=== PATIENT | male | born 1970 | race Caucasian/White ===

== ENCOUNTER 2018-04-26 06:23 | Emergency (ER) | payer SELFPAY ==
[2018-04-26] MEDS ORDERED: ASPIRIN 81 MG CHEWABLE TABLET ONE (06:54)
[2018-04-26] MEDS ORDERED: LORazepam 2 MG/ML VIAL ONE (06:54)
[2018-04-26 07:10] LABS: Absolute Lymphocytes (CBC) 1.4 K/uL (0.7-4.9); Absolute Monocytes 0.9 K/uL (0.1-1.3); Absolute Neutrophil 10.6 K/uL (1.8-8.0); Basophils % 1.2 % (0-1.3); Hematocrit 49.6 % (39.6-49.0); Lymphocytes % 10.4 % (15.3-44.8); MCV 93.3 fL (80-100); MPV 7.7 fL (7.6-11.3); Monocytes % 6.6 % (3.3-12.3); RBC Red Blood Cell Count 5.32 M/uL (4.33-5.43)
[2018-04-26 07:12] LABS: Protime INR 0.97
[2018-04-26 07:25] LABS: ALT/SGPT 33 U/L (12-78); AST/SGOT 15 U/L (15-37); Alkaline Phosphatase 64 U/L (45-117); BUN Blood Urea Nitrogen 15 mg/dL (7-18); Bicarbonate 24 mmol/L (21-32); Bilirubin Direct 0.1 mg/dL (0-0.2); Bilirubin Total 0.4 mg/dL (0.2-1.0); CKMB Creatine Kinase MB 1.4 ng/mL (0.3-3.6); Creatine Phosphokinase 85 U/L (39-308); Glucose Level 114 mg/dL (74-106); Magnesium 2.4 mg/dL (1.8-2.4); NT PRO-BNP 19 pg/mL (<125); Protein, Total 7.6 g/dL (6.4-8.2); Sodium Level 138 mmol/L (136-145); Troponin (Emerg Dept Use Only) < 0.02 ng/mL (0.0-0.045)
[2018-04-26] MEDS ORDERED: DIPHENHYDRAMINE 25 MG TAB/CAP ONE (09:52)
[2018-04-26] MEDS ORDERED: SUCRALFATE 1 GM TABLET ONE (10:26)
--- NOTE | 2018-04-26 12:05 | EDPHYS ---
Physician Documentation [facility] Name: Franklin Medellin Age: 47 yrs Sex: Male : 1970 Arrival Date: 04/26/2018 Time: 06:26 Bed External Waiting Private MD: ED Physician Berlin Newman HPI: 04/26 06:48 This 47 yrs old Male presents to ER via EMS with complaints of Chest Pain. snw 06:48 The patient or guardian reports chest pain that is located primarily in the substernal snw area, epigastric area. Onset: suddenly, 3 hour(s) ago. The pain does not radiate. Associated signs and symptoms: The patient has no apparent associated signs or symptoms. The chest pain is described as sharp. Duration: The patient or guardian reports multiple episodes. Severity of pain: At its worst the pain was incapacitating. EMS care prior to arrival includes: saline lock. It is unknown whether or not the patient has had similar symptoms in the past. It is unknown whether or not the patient has recently seen a physician. last medicated for HTN, schizophrenia a month ago while in halfway. Historical: - Allergies: 06:34 No Known Allergies; jb4 - Home Meds: 06:34 None [Active]; jb4 - PMHx: 06:34 GERD; Hypertension; Anxiety; Schizophrenia; Bipolar disorder; Depression; jb4 - Immunization history:: Adult Immunizations up to date. - Social history:: Smoking status: Patient uses tobacco products, smokes one pack cigarettes per day. Patient uses street drugs, marijuana. - Ebola Screening: : No symptoms or risks identified at this time. ROS: 06:47 Eyes: Negative for injury, pain, redness, and discharge, ENT: Negative for injury, snw pain, and discharge, Neck: Negative for injury, pain, and swelling, Respiratory: Negative for shortness of breath, cough, wheezing, and pleuritic chest pain, Abdomen/GI: Negative for abdominal pain, nausea, vomiting, diarrhea, and constipation, Back: Negative for injury and pain, : Negative for injury, bleeding, discharge, and swelling, MS/Extremity: Negative for injury and deformity, Skin: Negative for injury, rash, and discoloration, Neuro: Negative for headache, weakness, numbness, tingling, and seizure. 06:47 Constitutional: Positive for body aches. 06:47 Cardiovascular: Positive for chest pain, with cough, with movement, of the xyphoid area. Exam: 06:43 Constitutional: This is a well developed, well nourished patient who is awake, alert, snw and in no acute distress. Head/Face: Normocephalic, atraumatic. Eyes: Pupils equal round and reactive to light, extra-ocular motions intact. Lids and lashes normal. Conjunctiva and sclera are non-icteric and not injected. Cornea within normal limits. Periorbital areas with no swelling, redness, or edema. ENT: Nares patent. No nasal discharge, no septal abnormalities noted. Tympanic membranes are normal and external auditory canals are clear. Oropharynx with no redness, swelling, or masses, exudates, or evidence of obstruction, uvula midline. Mucous membranes moist. Neck: Trachea midline, no thyromegaly or masses palpated, and no cervical lymphadenopathy. Supple, full range of motion without nuchal rigidity, or vertebral point tenderness. No Meningismus. Respiratory: Lungs have equal breath sounds bilaterally, clear to auscultation and percussion. No rales, rhonchi or wheezes noted. No increased work of breathing, no retractions or nasal flaring. Abdomen/GI: Soft, non-tender, with normal bowel sounds. No distension or tympany. No guarding or rebound. No evidence of tenderness throughout. Back: No spinal tenderness. No costovertebral tenderness. Full range of motion. Skin: Warm, dry with normal turgor. Normal color with no rashes, no lesions, and no evidence of cellulitis. MS/ Extremity: Pulses equal, no cyanosis. Neurovascular intact. Full, normal range of motion. Neuro: Awake and alert, GCS 15, oriented to person, place, time, and situation. Cranial nerves II-XII grossly intact. Motor strength 5/5 in all extremities. Sensory grossly intact. Cerebellar exam normal. Normal gait. 06:43 Chest/axilla: Inspection: normal, Palpation: is normal. 06:43 Cardiovascular: Rate: bradycardic, Rhythm: regular, Pulses: no pulse deficits are appreciated, Heart sounds: normal, Edema: is not appreciated. Vital Signs: 06:34 BP 164 / 111; Pulse 54; Resp 20; Temp 97.5(O); Pulse Ox 100% on R/A; Weight 81.65 kg; jb4 Height 5 ft. 11 in. (180.34 cm); Pain 10/10; 07:30 BP 151 / 110; Pulse 48; Resp 17; Pulse Ox 99% on R/A; sg 08:22 BP 148 / 102; Pulse 53; Resp 17; Pulse Ox 100% on R/A; sg 06:34 Body Mass Index 25.10 (81.65 kg, 180.34 cm) jb4 MDM: 06:35 Patient medically screened. snw 11:15 ECG:. The patient was given aspirin in the Emergency Department. Data reviewed: vital snw signs, nurses notes. Data interpreted: Pulse oximetry: on room air is 100 %. Interpretation: normal. Counseling: I had a detailed discussion with the patient and/or guardian regarding: the historical points, exam findings, and any diagnostic results supporting the discharge/admit diagnosis, the presence of at least one elevated blood pressure reading (>120/80) during this emergency department visit, lab results, the need for outpatient follow up, for definitive care, to return to the emergency department if symptoms worsen or persist or if there are any questions or concerns that arise at home, smoking cessation. Special discussion: Based on the patient's history, exam, and Dx evaluation, there is no indication for emergent intervention or inpatient Tx. It is understood by the patient/guardian that if the Sx's persist or worsen they need to return immediately for re-evaluation. I have referred the patient to see his PCP for further evaluation of high blood pressure. Based on the history and exam findings, there is no indication for further emergent testing or inpatient evaluation. I discussed with the patient/guardian the need to see the primary care provider for further evaluation of the symptoms. 04/26 06:34 Order name: Basic Metabolic Panel; Complete Time: 07:36 snw 04/26 06:34 Order name: CBC with Diff; Complete Time: 07:36 snw 04/26 06:34 Order name: Ckmb; Complete Time: 07:36 snw 04/26 06:34 Order name: CPK; Complete Time: 07:36 snw 04/26 06:34 Order name: LFT's; Complete Time: 07:36 snw 04/26 06:34 Order name: Magnesium; Complete Time: 07:36 snw 04/26 06:34 Order name: NT PRO-BNP; Complete Time: 07:36 snw 04/26 06:34 Order name: PT-INR; Complete Time: 07:36 w 04/26 06:34 Order name: Ptt, Activated; Complete Time: 07:36 snw 04/26 06:34 Order name: Troponin (emerg Dept Use Only); Complete Time: 07:36 snw 04/26 06:34 Order name: XRAY Chest (1 view) w 04/26 06:34 Order name: EKG; Complete Time: 06:35 snw 04/26 06:34 Order name: Cardiac monitoring; Complete Time: 06:41 snw 04/26 06:34 Order name: EKG - Nurse/Tech; Complete Time: 06:55 snw 04/26 06:34 Order name: IV Saline Lock; Complete Time: 06:41 snw 04/26 06:34 Order name: Labs collected and sent; Complete Time: 06:41 snw 04/26 06:34 Order name: O2 Per Protocol; Complete Time: 06:41 snw 04/26 06:34 Order name: O2 Sat Monitoring; Complete Time: 06:42 snw 04/26 08:17 Order name: Recheck VS; Complete Time: 08:22 snw EC:15 Clinical impression: NSR w/ Non-specific ST/T Changes. Interpreted by me. snw Administered Medications: 06:53 Drug: Aspirin Chewable Tablet 324 mg Route: PO; ea 07:30 Follow up: Response: No adverse reaction sg 06:54 Not Given (Physician Discretion): Ativan 1 mg PO once ea 06:55 Drug: Ativan 1 mg Route: IVP; Site: left antecubital; ea 08:00 Follow up: Response: No adverse reaction; No change in condition sg Disposition: 04/26/18 11:14 Discharged to Home. Impression: Chest pain, unspecified. - Condition is Stable. - Discharge Instructions: Nonspecific Chest Pain, Hypertension. - Medication Reconciliation Form, Thank You Letter, Antibiotic Education, Prescription Opioid Use form. - Follow up: Private Physician; When: Today; Reason: Recheck today's complaints, Continuance of care, Re-evaluation by your physician. Addendum: 04/28/2018 10:09 Co-signature as Attending Physician, Berlin Newman MD. g s Signatures: Dispatcher [employer] EDMS Karissa Miller, AEROSOL SUPERVISOR-C AEROSOL SUPERVISOR-Csnw Dulce Mann, RN RN Franklin Mo RN RN jb4 Agnieszka Archuleta RN Berlin Vazquez ea, MD MD Tripp Keller RN sg Corrections: (The following items were deleted from the chart) 04/26 11:21 11:14 04/26/2018 11:14 Discharged to Home. Impression: Chest pain, unspecified. iw Condition is Stable. Forms are Medication Reconciliation Form, Thank You Letter, Antibiotic Education, Prescription Opioid Use. Follow up: Private Physician; When: Today; Reason: Recheck today's complaints, Continuance of care, Re-evaluation by your physician. snw
--- NOTE | 2018-04-26 12:05 | ER ---
Nurse's Notes [facility] Name: Franklin Medellin Age: 47 yrs Sex: Male : 1970 Arrival Date: 04/26/2018 Time: 06:26 Bed External Waiting Private MD: Diagnosis: Chest pain, unspecified Presentation: 04/26 06:27 Presenting complaint: EMS states: Pt woke up 3 hours ago with epigastric/chest pain. jb4 EMS states pt was hyperventilating at home. Pt reports nausea. Transition of care: patient was not received from another setting of care. Onset of symptoms was April 26, 2018 at 03:30. Risk Assessment: Do you want to hurt yourself or someone else? Patient reports no desire to harm self or others. Initial Sepsis Screen: Does the patient meet any 2 criteria? No. Patient's initial sepsis screen is negative. Does the patient have a suspected source of infection? No. Patient's initial sepsis screen is negative. Care prior to arrival: None. 06:27 Method Of Arrival: EMS: [facility] 06:27 Acuity: AUBREY 3 jb4 Triage Assessment: 06:34 General: Appears in no apparent distress. uncomfortable, Behavior is cooperative, jb4 appropriate for age, anxious. Pain: Complains of pain in xyphoid area and mid-sternal area. Neuro: Level of Consciousness is awake, alert, obeys commands, Oriented to person, place, time, situation. Cardiovascular: Patient's skin is warm and dry. Respiratory: Airway is patent Respiratory effort is even, unlabored, Respiratory pattern is regular, symmetrical. GI: Reports nausea. Derm: Skin is pink, warm \\T\\ dry. Historical: - Allergies: 06:34 No Known Allergies; jb4 - Home Meds: 06:34 None [Active]; jb4 - PMHx: 06:34 GERD; Hypertension; Anxiety; Schizophrenia; Bipolar disorder; Depression; jb4 - Immunization history:: Adult Immunizations up to date. - Social history:: Smoking status: Patient uses tobacco products, smokes one pack cigarettes per day. Patient uses street drugs, marijuana. - Ebola Screening: : No symptoms or risks identified at this time. Screenin:40 Abuse screen: Denies threats or abuse. Nutritional screening: No deficits noted. jb4 Tuberculosis screening: No symptoms or risk factors identified. Fall Risk None identified. Assessment: 06:41 Pain: Pain does not radiate. Pain began 3 hours ago. jb4 08:08 Reassessment: Patient appears in no apparent distress at this time. Patient and/or sg family updated on plan of care and expected duration. Pain level reassessed. Patient is alert, oriented x 3, equal unlabored respirations, skin warm/dry/pink. pt reports " that shot of medicine they gave me earlier helped a little bit but not a lot." pt encouraged to provide a urine specimen, pt reports not having to urinate at this time. Vital Signs: 06:34 BP 164 / 111; Pulse 54; Resp 20; Temp 97.5(O); Pulse Ox 100% on R/A; Weight 81.65 kg; jb4 Height 5 ft. 11 in. (180.34 cm); Pain 10/10; 07:30 BP 151 / 110; Pulse 48; Resp 17; Pulse Ox 99% on R/A; sg 08:22 BP 148 / 102; Pulse 53; Resp 17; Pulse Ox 100% on R/A; sg 06:34 Body Mass Index 25.10 (81.65 kg, 180.34 cm) jb4 ED Course: 06:26 Patient arrived in ED. jb4 06:31 Triage completed. jb4 06:34 Karissa Miller FNP-C [facility] snw 06:34 Berlin Newman MD is Attending Physician. snw 06:34 Arm band placed on right wrist. jb4 06:40 Patient has correct armband on for positive identification. Pulse ox on. NIBP on. jb4 06:40 Maintain EMS IV. Dressing intact. Good blood return noted. Site clean \\T\\ dry. Gauge \\T\\ ronda 4 site: 20 g L AC. Patient maintains SpO2 saturation greater than 95% on room air. 06:51 X-ray completed. Portable x-ray completed in exam room. Patient tolerated procedure kp1 well. 06:52 XRAY Chest (1 view) In Process Unspecified. EDMS 07:09 Tripp Keller, RN is Primary Nurse. sg 11:00 IV discontinued, intact, bleeding controlled, No redness/swelling at site. Pressure iw dressing applied. 11:20 No provider procedures requiring assistance completed. iw Administered Medications: 06:53 Drug: Aspirin Chewable Tablet 324 mg Route: PO; ea 07:30 Follow up: Response: No adverse reaction sg 06:54 Not Given (Physician Discretion): Ativan 1 mg PO once ea 06:55 Drug: Ativan 1 mg Route: IVP; Site: left antecubital; ea 08:00 Follow up: Response: No adverse reaction; No change in condition sg Outcome: 11:14 Discharge ordered by MD. [place] 11:20 Discharged to home ambulatory, with family. iw 11:20 Condition: good 11:20 Discharge instructions given to patient, Instructed on discharge instructions, follow up and referral plans. Demonstrated understanding of instructions. 11:21 Patient left the ED. iw Signatures: Dispatcher [employer] EDMS Tripp Keller RN RN sg Karissa Miller, TOLL GATE TENDER-C TOLL GATE TENDER-Csnw Dulce Mann, RN SENIA Franklin Jaramillo RN SENIA jb Yoana Mai kp1 Agnieszka Archuleta RN RN ea
--- NOTE | 2018-04-26 14:41 | RAD REPORT ---
EXAM DESCRIPTION: RAD - Chest Single View - 04/26/2018 6:55 am CLINICAL HISTORY: CHEST PAIN<Reason For Exam>CHEST PAIN COMPARISON: No comparisons<Comparisons> TECHNIQUE: AP portable chest image was obtained 0641 hours . FINDINGS: No focal mass or consolidation. Lung markings are mildly prominent believed to be in part due to shallow inspiration. Significant interstitial edema or infiltrate doubtful. Heart and vasculat ure are normal. No measurable pleural effusion and no pneumothorax. No gross bony abnormality seen. N o acute aortic findings suspected. IMPRESSION: No focal infiltrate, mass or significant acute finding.
--- NOTE | 2018-04-27 08:38 | EKG ---
Test Date: 2018-04-26 Test Time: 06:53:34 Brake Adjuster: NISHANT MEASUREMENT RESULTS: Intervals: Rate: 58 LA: 208 QRSD: 88 QT: 420 QTc: 412 [place]: P: 121 LA: 208 QRS: 16 T: 82 INTERPRETIVE STATEMENTS: Unusual P axis, possible ectopic atrial bradycardia Nonspecific T wave abnormality Abnormal ECG No previous ECG available for comparison Electronically Signed On 04-27-18 08:36:39 CDT by Cezar Franklin
== END 2018-04-26 11:21 | disposition home or self-care (01) ==
LOC: ER 06:23
DX: R07.9 Chest pain, unspecified (principal); I10 Essential (primary) hypertension; F20.9 Schizophrenia, unspecified; F31.9 Bipolar disorder, unspecified; F17.210 Nicotine dependence, cigarettes, uncomplicated
CPT/HCPCS: 36415; 71045; 80048; 80076; 82550; 82553; 83735; 83880; 84484; 85025; 85610; 85730; 93005; 96374; 99284

== ENCOUNTER 2019-02-16 08:01 | Emergency (ER) | payer SELFPAY ==
[2019-02-16] MEDS ORDERED: DIPHENHYDRAMINE 25 MG TAB/CAP ONE (08:36)
[2019-02-16] MEDS ORDERED: FAMOTIDINE 20 MG TAB ONE (08:36)
[2019-02-16] MEDS ORDERED: predniSONE 20 MG TAB ONE (08:36)
--- NOTE | 2019-02-16 08:36 | ER ---
Nurse's Notes [facility] Name: Franklin Medellin Age: 48 yrs Sex: Male : 1970 Arrival Date: 02/16/2019 Time: 08:05 Bed 19 Private MD: Diagnosis: Urticaria Presentation: 02/16 08:12 Presenting complaint: Patient states: i stay in [facility] in [place], 2 days ago, hj i noticed a bump on my L neck area and today i noticed another one on my R neck and my back, its like hives, denies SOB, denies fever and chillsl. Transition of care: patient was not received from another setting of care. Onset: The symptoms/episode began/occurred this morning. Anaphylaxis evaluation, no signs or symptoms of anaphylaxis were noted. Onset of symptoms was February 16, 2019. Risk Assessment: Do you want to hurt yourself or someone else? Patient reports no desire to harm self or others. Initial Sepsis Screen: Does the patient meet any 2 criteria? No. Patient's initial sepsis screen is negative. Does the patient have a suspected source of infection?. Care prior to arrival: None. 08:12 Method Of Arrival: Ambulatory 08:12 Acuity: AUBREY 4 hj Triage Assessment: 08:14 General: Appears in no apparent distress. uncomfortable, Behavior is calm, cooperative, hj appropriate for age. Historical: - Allergies: 08:15 No Known Allergies; hj - Home Meds: 08:15 Metoprolol Tartrate Oral [Active]; Lisinopril Oral [Active]; hj - PMHx: 08:15 Anxiety; Bipolar disorder; Depression; GERD; Hypertension; Schizophrenia; hj - PSHx: 08:15 None; hj - Immunization history:: Adult Immunizations up to date. - Social history:: Smoking status: Patient uses tobacco products, Patient/guardian denies using alcohol. - Ebola Screening: : Patient negative for fever greater than or equal to 101.5 degrees Fahrenheit, and additional compatible Ebola Virus Disease symptoms Patient denies exposure to infectious person Patient denies travel to an Ebola-affected area in the 21 days before illness onset. Screenin:13 Abuse screen: Denies threats or abuse. Denies injuries from another. Nutritional hj screening: No deficits noted. Tuberculosis screening: No symptoms or risk factors identified. Fall Risk None identified. Assessment: 08:14 Pain: Denies pain. Respiratory: Airway is patent Respiratory effort is even, unlabored, hj Breath sounds are clear. 08:14 General: Appears in no apparent distress. uncomfortable, Behavior is calm, cooperative, hj appropriate for age. Neuro: Level of Consciousness is awake, alert, obeys commands, Oriented to person, place, time, situation, Appropriate for age. Cardiovascular: Capillary refill < 3 seconds Patient's skin is warm and dry. GI: No signs and/or symptoms were reported involving the gastrointestinal system. : No signs and/or symptoms were reported regarding the genitourinary system. EENT: No signs and/or symptoms were reported regarding the EENT system. Derm: Reports itching, since today. hives. Musculoskeletal: No signs and/or symptoms reported regarding the musculoskeletal system. Vital Signs: 08:11 BP 148 / 106; Pulse 108; Resp 18; Temp 97.3(TE); Pulse Ox 97% on R/A; Weight 84.82 kg; hj Height 5 ft. 11 in. (180.34 cm); Pain 0/10; 08:41 BP 125 / 92; Pulse 92; Resp 18; Pulse Ox 98% on R/A; hj 08:11 Body Mass Index 26.08 (84.82 kg, 180.34 cm) ED Course: 08:05 Patient arrived in ED. ss 08:05 Radha Thorne FNP-C [facility] kb 08:05 Cole Bernard MD is Attending Physician. kb 08:10 Timmy Perez, SENIA is Primary Nurse. hj 08:13 Triage completed. hj 08:14 Arm band placed on right wrist. hj 08:16 Patient has correct armband on for positive identification. Bed in low position. Call hj light in reach. Side rails up X 1. 08:41 No provider procedures requiring assistance completed. Patient did not have IV access hj during this emergency room visit. Administered Medications: 08:23 Drug: Benadryl 25 mg Route: PO; hj 08:25 Follow up: Response: No adverse reaction hj 08:24 Drug: Pepcid 20 mg Route: PO; hj 08:24 Follow up: Response: No adverse reaction hj 08:24 Drug: predniSONE 40 mg Route: PO; hj 08:24 Follow up: Response: No adverse reaction hj Outcome: 08:32 Discharge ordered by . alex 08:42 Discharged to home ambulatory. 08:42 Condition: stable 08:42 Discharge instructions given to patient, Instructed on discharge instructions, follow up and referral plans. medication usage, Demonstrated understanding of instructions, follow-up care, medications, Prescriptions given X 2. 08:42 Patient left the ED. neri Signatures: Radha Thorne, SATISH-C SATISH-Valeria Banuelos RN RN Timmy Perez RN RN
--- NOTE | 2019-02-16 08:36 | EDPHYS ---
Physician Documentation [facility] Name: Franklin Medellin Age: 48 yrs Sex: Male : 1970 Arrival Date: 02/16/2019 Time: 08:05 Bed 19 Private MD: ED Physician Cole Bernard HPI: 02/16 08:13 This 48 yrs old Male presents to ER via Ambulatory with complaints of kb Allergic Reaction. 08:13 The patient presents with rash, of the face and neck and abdomen and chest and back. kb Onset: The symptoms/episode began/occurred 3 day(s) ago, and became worse this morning. Associated signs and symptoms: Pertinent positives: hives, rash, Pertinent negatives: abdominal pain, Altered mental status chest pain, dysphagia, fever, headache, Light headed nausea, shortness of breath, swelling, Syncope vomiting. Possible causes: The patient has no known obvious cause for the symptoms. At home the patient or guardian has treated the symptoms with nothing. Severity of symptoms: At their worst the symptoms were moderate in the emergency department the symptoms are unchanged. The patient has experienced a previous episode. The patient has not recently seen a physician. Pt states he had one hive 3 days ago that went away on its own after a day or so. States he woke up this morning with hives to face, neck and trunk. No new substances that he is aware of. States he stopped his bp medication (lisinopril and metoprolol) 2 weeks ago because it was causing hives. States he has a new medication for htn, but he hasn't picked it up from the pharmacy yet. Historical: - Allergies: 08:15 No Known Allergies; hj - Home Meds: 08:15 Metoprolol Tartrate Oral [Active]; Lisinopril Oral [Active]; hj - PMHx: 08:15 Anxiety; Bipolar disorder; Depression; GERD; Hypertension; Schizophrenia; hj - PSHx: 08:15 None; hj - Immunization history:: Adult Immunizations up to date. - Social history:: Smoking status: Patient uses tobacco products, Patient/guardian denies using alcohol. - Ebola Screening: : Patient negative for fever greater than or equal to 101.5 degrees Fahrenheit, and additional compatible Ebola Virus Disease symptoms Patient denies exposure to infectious person Patient denies travel to an Ebola-affected area in the 21 days before illness onset. ROS: 08:12 Constitutional: Negative for fever, chills, and weight loss, ENT: Negative for injury, kb pain, and discharge, Neck: Negative for injury, pain, and swelling, Cardiovascular: Negative for chest pain, palpitations, and edema, Respiratory: Negative for shortness of breath, cough, wheezing, and pleuritic chest pain, Abdomen/GI: Negative for abdominal pain, nausea, vomiting, diarrhea, and constipation, Back: Negative for injury and pain, MS/Extremity: Negative for injury and deformity, Neuro: Negative for headache, weakness, numbness, tingling, and seizure. 08:12 Skin: Positive for rash, of the face and neck and abdomen and chest and back. Exam: 08:11 Constitutional: This is a well developed, well nourished patient who is awake, alert, kb and in no acute distress. Head/Face: Normocephalic, atraumatic. Chest/axilla: Normal chest wall appearance and motion. Nontender with no deformity. No lesions are appreciated. Cardiovascular: Regular rate and rhythm with a normal S1 and S2. No gallops, murmurs, or rubs. Normal PMI, no JVD. No pulse deficits. Respiratory: Lungs have equal breath sounds bilaterally, clear to auscultation and percussion. No rales, rhonchi or wheezes noted. No increased work of breathing, no retractions or nasal flaring. Abdomen/GI: Soft, non-tender, with normal bowel sounds. No distension or tympany. No guarding or rebound. No evidence of tenderness throughout. MS/ Extremity: Pulses equal, no cyanosis. Neurovascular intact. Full, normal range of motion. Neuro: Awake and alert, GCS 15, oriented to person, place, time, and situation. Cranial nerves II-XII grossly intact. Motor strength 5/5 in all extremities. Sensory grossly intact. Cerebellar exam normal. Normal gait. 08:11 Skin: consistent with urticaria, on the face, back, chest, abdomen and neck. Vital Signs: 08:11 BP 148 / 106; Pulse 108; Resp 18; Temp 97.3(TE); Pulse Ox 97% on R/A; Weight 84.82 kg; hj Height 5 ft. 11 in. (180.34 cm); Pain 0/10; 08:41 BP 125 / 92; Pulse 92; Resp 18; Pulse Ox 98% on R/A; hj 08:11 Body Mass Index 26.08 (84.82 kg, 180.34 cm) hj MDM: 08:06 Patient medically screened. kb 08:11 Data reviewed: vital signs, nurses notes. Data interpreted: Pulse oximetry: on room air kb is 97 %. Interpretation: normal. 08:20 Counseling: I had a detailed discussion with the patient and/or guardian regarding: the kb historical points, exam findings, and any diagnostic results supporting the discharge/admit diagnosis, the need for outpatient follow up, a family practitioner, to return to the emergency department if symptoms worsen or persist or if there are any questions or concerns that arise at home. Administered Medications: 08:23 Drug: Benadryl 25 mg Route: PO; hj 08:25 Follow up: Response: No adverse reaction hj 08:24 Drug: Pepcid 20 mg Route: PO; hj 08:24 Follow up: Response: No adverse reaction hj 08:24 Drug: predniSONE 40 mg Route: PO; hj 08:24 Follow up: Response: No adverse reaction Disposition: 08:43 Co-signature as Attending Physician, Cole Bernard MD. rn Disposition: 02/16/19 08:32 Discharged to Home. Impression: Urticaria. - Condition is Stable. - Discharge Instructions: Hives, [id number], Allergies, [id number]. - Prescriptions for Pepcid 20 mg Oral Tablet - take 1 tablet by ORAL route every 12 hours for 5 days; 10 tablet. Prednisone 20 mg Oral Tablet - take 1 tablet by ORAL route once daily for 5 days; 5 tablet. - Medication Reconciliation Form, Thank You Letter, Antibiotic Education, Prescription Opioid Use form. - Follow up: Emergency Department; When: As needed; Reason: Worsening of condition. Follow up: Private Physician; When: 2 - 3 days; Reason: Recheck today's complaints, Continuance of care, Re-evaluation by your physician. Signatures: Radha Thorne, [employer]-C [employer]-Cole Michel MD MD rn Joaquin, Henry, RN RN hj Corrections: (The following items were deleted from the chart) 08:13 08:11 Data interpreted: Pulse oximetry: on room air is 100 %. Interpretation: normal. kbkb 08:42 08:32 02/16/2019 08:32 Discharged to Home. Impression: Urticaria. Condition is Stable. hj Discharge Instructions: Hives, [id number], Allergies, [id number]. Prescriptions for Pepcid 20 mg Oral Tablet - take 1 tablet by ORAL route every 12 hours for 5 days; 10 tablet, Prednisone 20 mg Oral Tablet - take 1 tablet by ORAL route once daily for 5 days; 5 tablet. and Forms are Medication Reconciliation Form, Thank You Letter, Antibiotic Education, Prescription Opioid Use. Follow up: Emergency Department; When: As needed; Reason: Worsening of condition. Follow up: Private Physician; When: 2 - 3 days; Reason: Recheck today's complaints, Continuance of care, Re-evaluation by your physician. kb
== END 2019-02-16 08:42 | disposition home or self-care (01) ==
LOC: ER 08:01
DX: L50.9 Urticaria, unspecified (principal); I10 Essential (primary) hypertension; F32.9 Major depressive disorder, single episode, unspecified; F41.9 Anxiety disorder, unspecified; Z72.0 Tobacco use
CPT/HCPCS: 99283; J7512